=== PATIENT | female | born 1970 | race Caucasian/White ===

== ENCOUNTER 2022-05-11 10:16 | Outpatient (CLI) | payer OTHER, SELFPAY ==
[2022-05-11 21:41] LABS: Albumin* 4.6 g/dL (3.3-5.0)
[2022-05-11 21:42] LABS: Chloride* 104 mmol/L (96-114); Potassium* 4.4 mmol/L (3.6-5.1); Sodium* 138 mmol/L (135-149)
[2022-05-11 21:44] LABS: Alkaline Phosphatase* 85 U/L (40-150); Aspartate Amino Transferase* 24 U/L (12-35); Bilirubin Total* 0.6 mg/dL (0.1-1.5); Blood Urea Nitrogen* 11 mg/dL (7-30); Carbon Dioxide* 28 mmol/L (20-32); Cholesterol* 248 mg/dL (90-199); Creatinine* 0.7 mg/dL (0.5-1.5); Estimated Glomerular Filt Rate 105 ml/min; Total Protein* 7.5 g/dL (6.0-8.3)
[2022-05-11 21:45] LABS: Alanine Aminotransferase* 17 U/L (4-35); Glucose* 92 mg/dL (60-115); HDL Cholesterol* 77 mg/dL (>=50); LDL Cholesterol Calculated 149 mg/dL (<100); Triglycerides* 109 mg/dL (40-149)
[2022-05-11 22:18] LABS: TSH With Reflex to FT4* 0.983 uIU/mL (0.270-4.200)
[2022-05-11 22:35] LABS: Hepatitis C Virus Antibody* Negative (Negative)
== END 2022-05-11 10:17 | disposition home or self-care (01) ==
PROVIDERS: PCP Family Medicine; Visit Provider Family Medicine
DX: Z00.00 Encounter for general adult medical examination without abnormal findings (principal); E03.9 Hypothyroidism, unspecified; D69.6 Thrombocytopenia, unspecified; N76.0 Acute vaginitis; Z11.59 Encounter for screening for other viral diseases; Z13.6 Encounter for screening for cardiovascular disorders
CPT/HCPCS: 80053; 80061; 84443; 86803

== ENCOUNTER 2022-06-08 10:23 | Outpatient (CLI) | payer OTHER, SELFPAY | END 2022-06-08 10:24 | disposition home or self-care (01) | LOC: OP CLINIC 10:24 | PROVIDERS: PCP Family Medicine; Visit Provider Surgery | DX: Z12.11 Encounter for screening for malignant neoplasm of colon (principal); K63.5 Polyp of colon; Z80.0 Family history of malignant neoplasm of digestive organs; Z86.010 Personal history of colon polyps | CPT/HCPCS: 45385; 88305; 99153; J2250; J3010 ==

== ENCOUNTER 2022-07-06 12:45 | Outpatient (CLI) | payer OTHER, SELFPAY ==
--- NOTE | 2022-07-06 13:00 | CRLHL7_ITS ---
For Patients: As a result of the Century Cures Act, medical imaging exams and procedure reports are released immediately into your electronic medical record. You may view this report before your referring provider. If you have questions, please contact your health care provider. BILATERAL SCREENING MAMMOGRAM WITH COMPUTER-AIDED DETECTION AND TOMOSYNTHESIS TECHNIQUE: CC, MLO and Implant displaced views were obtained. These mammographic images have been obtained using full-field digital technique. These mammographic images were interpreted with the benefit of computer-aided detection. Breast Tomosynthesis was used in this interpretation. COMPARISON FILM: 04/21/17, 07/02/14, 10/05/12. FINDINGS: The breasts are extremely dense, which lowers the sensitivity of mammography IMPRESSION: There is no radiographic evidence for malignancy. ASSESSMENT: BI-RADS Category 2: Benign RECOMMENDATION: Routine screening mammogram in 1 year. A lay language report of this examination will be provided to the patient. Marques Gill M.D. Diagnostic Radiologist [email or web address] SEEMA/mary / be/Dictated by: Marques Gill MD @ 07/07/2022 1:15:00 PM (Electronically Signed)
== END 2022-07-06 12:46 | disposition home or self-care (01) ==
LOC: MAMMO 12:46
PROVIDERS: PCP Family Medicine; Visit Provider Family Medicine
DX: Z12.31 Encounter for screening mammogram for malignant neoplasm of breast (principal); R92.2 Inconclusive mammogram
CPT/HCPCS: 77063; 77067

== ENCOUNTER 2024-02-09 08:28 | Outpatient (CLI) | payer OTHER, SELFPAY ==
--- OUTSIDE RECORDS SUMMARY | 2024-02-09 08:32 | XMS_ITS | Clinical Summary ---
[facility] Address [address] [place] [id number] Care Team Providers Care Production Zone Leader Name Role Phone Heber Kraft MD Primary Care Provider [phone] Source Comments You are receiving this document as you are listed as the primary care provider,follow-up provider, or the patient has been referred to you for consultation.This is in compliance with the Medicare and[facility] EHR Incentive Program,which states Providers who transition their patient to another setting of careor provider of care or refers their patient to another provider of care shouldprovide summary care record for each transition of care or referral. [facility] Allerg[facility] Active Allergy Reactions Criticality Noted Date Comments Penicillin V Respiratory Distress High 03/30/2019 Medications No known medications Social History Tobacco Use Types Packs/Day Years Used Date Smoking Tobacco: Never Smokeless Tobacco: Current Alcohol Use Standard Drinks/Week Comments Yes 1 (1 standard drink = 0.6 oz pur e alcohol) occ Sex and Gender Information Value Date Recorded Sex Assigned at Not on file Gender Identity Not on file Sexual Orientation Not on file Last Filed Vital Signs Vital Sign Reading Time Taken Comments Blood Pressure 107/66 03/30/2019 3:55 PM WORK STUDY STUDENT Pulse 62 03/30/2019 3:55 PM WORK STUDY STUDENT Temperature - - Respiratory Rate 16 03/30/2019 3:55 PM WORK STUDY STUDENT Oxygen Saturation 100% 03/30/2019 3:55 PM WORK STUDY STUDENT Inhaled Oxygen Concentration - - Weight 59 kg (130 lb) 03/30/2019 2:52 PM WORK STUDY STUDENT Height 172.7 cm (5' 8) 03/30/2019 2:52 PM WORK STUDY STUDENT Body Mass Index 19.77 03/30/2019 2:52 PM WORK STUDY STUDENT Plan of Treatment Health Maintenance Due Date Last Done Comments Cervical Cancer Screening Due 1970 Hep C Screening (Preventive Services) 1970 Mammogram 1970 HIV Screening (Preventive Services) 1986 Adult Preventive Visit 1988 DTaP/Tdap/Td (1 - Tdap) 1989 HepB (1) 1989 Cholesterol 07/19/2015 Zoster/Shingles (1 of 2) 2020 COVID-19 Vaccine (2 - season) 2023 07/30/2020 Influenza (#1) 2023 02/21/2020, 01/25, 02/09/2018, Additional history exists Colonoscopy 03/30/2024 03/30/2019 HepA Aged Out No longer eligi ble based on patient's age to complete this topic Hib Aged Out No longer eligi ble based on patient's age to complete this topic IPV (Polio) Aged Out No longer eligi ble based on patient's age to complete this topic Infant RSV Aged Out No longer eligi ble based on patient's age to complete this topic MCV4 Aged Out No longer eligi ble based on patient's age to complete this topic Pneumococcal Aged Out No longer eligi ble based on patient's age to complete this topic Procedures Procedure Name Priority Date/Time Associated Diagnosis Comments ENDOSCOPY, COLON, SCREENING/DIAGNOSTI C Routine 03/30/2019 2:57 PM WORK STUDY STUDENT Special screening for malignant neoplasms, colon from Last 3 Months or Most Recently Relevant to Health Maintenance Results * Endoscopy, colon, diagnostic (03/30/2019 2:57 PM WORK STUDY STUDENT) Anatomical Region Laterality Modality Other 03/30/2019 2:57 PM WORK STUDY STUDENT Narrative 03/30/2019 2:57 PM WORK STUDY STUDENT Patient Name: Joanna Brothers Procedure Date: 03/30/2019 2:57 PM Date of : 1970 Admit Type: Outpatient Age: 48 Note Status: Finalized Attending MD: Tory Bello MD Procedure: ? Colonoscopy Indications: ? Screening in patient at increased ? risk: Colorectal cancer in mother 60 ? or older Providers: ? Tory Bello MD, Mira Carroll, JOSE MANUEL Referring MD: ? Medicines: ? Midazolam 3 mg IV, Fentanyl 100 ? micrograms IV Complications: ? No immediate complications. Estimated ? blood loss: Minimal. Procedure: ? After I obtained informed consent, ? the scope was passed under direct ? vision. Throughout the procedure, the ? patient's blood pressure, pulse, and ? oxygen saturations were monitored ? continuously. The Colonoscope was ? introduced through the anus and ? advanced to the terminal ileum, with ? identification of the appendiceal ? orifice and IC valve. The colonoscopy ? was performed without difficulty. The ? patient tolerated the procedure well. ? The quality of the bowel preparation ? was excellent. Findings: ? The perianal and digital rectal examinations were ? normal. ? A 5 mm polyp was found in the distal transverse ? colon. The polyp was flat. The polyp was removed with ? a cold biopsy forceps. Resection and retrieval were ? complete. Verification of patient identification for ? the specimen was done by the physician and nurse ? using the patient's name and date. Estimated ? blood loss was minimal. ? The exam was otherwise normal throughout the examined ? colon. ? The terminal ileum appeared normal. ? The retroflexed view of the distal rectum and anal ? verge was normal and showed no anal or rectal ? abnormalities. Moderate Sedation: ? Moderate (conscious) sedation was administered by the ? endoscopy nurse and supervised by the endoscopist. ? The following parameters were monitored: oxygen ? saturation, heart rate, blood pressure, and response ? to care. Total physician intraservice time was 23 ? minutes. Impression: ?- One 5 mm polyp in the distal ? transverse colon, removed with a cold ? biopsy forceps. Resected and ? retrieved. ? - The examined portion of the ileum ? was normal. ? - The distal rectum and anal verge ? are normal on retroflexion view. Recommendation: ?- Await pathology results. ? - Return to referring physician PRN. Procedure Code(s): ?? --- Professional --- ? 91299, Colonoscopy, flexible; with ? biopsy, single or multiple ? 13101, Moderate sedation; each ? additional 15 minutes intraservice ? time ? G0500, Moderate sedation services ? provided by the same physician or ? other qualified health care ? professional performing a ? gastrointestinal endoscopic service ? that sedation supports, requiring the ? presence of an independent trained ? observer to assist in the monitoring ? of the patient's level of ? consciousness and physiological ? status; initial 15 minutes of ? intra-service time; patient age 5 ? years or older (additional time may ? be reported with 98641, as ? appropriate) Diagnosis Code(s): ?? --- Professional --- ? Z80.0, Family history of malignant ? neoplasm of digestive organs ? D12.3, Benign neoplasm of transverse ? colon (hepatic flexure or splenic ? flexure) CPT copyright 2018 [employer]. All rights reserved. The codes documented in this report are preliminary and upon rotor blade installer review may be revised to meet current compliance requirements. Tory Bello MD 03/30/2019 3:32:55 PM This document has been electronically signed. Number of Addenda: 0 Note Initiated On: 03/30/2019 2:57 PM ? Endoscopy Report Procedure Note Toyr Bello MD - 03/30/2019 Patient Name: Joanna Brothers Procedure Date: 03/30/2019 2:57 PM Date of : 1970 Admit Type: Outpatient Age: 48 Note Status: Finalized Attending MD: Tory Bello MD Procedure: Colonoscopy Indications: Screening in patient at increased risk: Colorectal cancer in mother 60 or older Providers: Tory Bello MD, Mira Carroll, RN Referring MD: Medicines: Midazolam 3 mg IV, Fentanyl 100 micrograms IV Complications: No immediate complications. Estimated blood loss: Minimal. Procedure: After I obtained informed consent, the scope was passed under direct vision. Throughout the procedure, the patient's blood pressure, pulse, and oxygen saturations were monitored continuously. The Colonoscope was introduced through the anus and advanced to the terminal ileum, with identification of the appendiceal orifice and IC valve. The colonoscopy was performed without difficulty. The patient tolerated the procedure well. The quality of the bowel preparation was excellent. Findings: The perianal and digital rectal examinations were normal. A 5 mm polyp was found in the distal transverse colon. The polyp was flat. The polyp was removed with a cold biopsy forceps. Resection and retrieval were complete. Verification of patient identification for the specimen was done by the physician and nurse using the patient's name and date. Estimated blood loss was minimal. The exam was otherwise normal throughout the examined colon. The terminal ileum appeared normal. The retroflexed view of the distal rectum and anal verge was normal and showed no anal or rectal abnormalities. Moderate Sedation: Moderate (conscious) sedation was administered by the endoscopy nurse and supervised by the endoscopist. The following parameters were monitored: oxygen saturation, heart rate, blood pressure, and response to care. Total physician intraservice time was 23 minutes. Impression: - One 5 mm polyp in the distal transverse colon, removed with a cold biopsy forceps. Resected and retrieved. - The examined portion of the ileum was normal. - The distal rectum and anal verge are normal on retroflexion view. Recommendation: - Await pathology results. - Return to referring physician PRN. Procedure Code(s): --- Professional --- 33585, Colonoscopy, flexible; with biopsy, single or multiple 03758, Moderate sedation; each additional 15 minutes intraservice time G0500, Moderate sedation services provided by the same physician or other qualified health client care coordinator performing a gastrointestinal endoscopic service that sedation supports, requiring the presence of an independent trained observer to assist in the monitoring of the patient's level of consciousness and physiological status; initial 15 minutes of intra-service time; patient age 5 years or older (additional time may be reported with 00778, as appropriate) Diagnosis Code(s): --- Professional --- Z80.0, Family history of malignant neoplasm of digestive organs D12.3, Benign neoplasm of transverse colon (hepatic flexure or splenic flexure) CPT copyright 2018 [employer]. All rights reserved. The codes documented in this report are preliminary and upon rotor blade installer review may be revised to meet current compliance requirements. Tory Bello MD 03/30/2019 3:32:55 PM This document has been electronically signed. Number of Addenda: 0 Note Initiated On: 03/30/2019 2:57 PM Endoscopy Report Tory Blelo MD ET TAL FRY from Last 3 Months or Most Recently Relevant to Health Maintenance Care Teams Production Zone Leader Relationship Specialty Start Date End Date Heber Kraft MD [facility] [address] [place] [address] PCP - General Family Practice 03/30/19
== END 2024-02-09 08:29 | disposition home or self-care (01) ==
PROVIDERS: PCP Registered Nurse; Visit Provider Registered Nurse
DX: Z00.00 Encounter for general adult medical examination without abnormal findings (principal); D69.6 Thrombocytopenia, unspecified; Z13.6 Encounter for screening for cardiovascular disorders
CPT/HCPCS: 80048; 80061

== ENCOUNTER 2024-04-20 13:09 | Outpatient (CLI) | payer OTHER, SELFPAY ==
--- NOTE | 2024-04-20 13:20 | CRLHL7_ITS ---
For Patients: As a result of the Century Cures Act, medical imaging exams and procedure reports are released immediately into your electronic medical record. You may view this report before your referring provider. If you have questions, please contact your health care provider. BILATERAL SCREENING MAMMOGRAM WITH COMPUTER-AIDED DETECTION AND TOMOSYNTHESIS TECHNIQUE: CC, MLO and Implant displaced views were obtained. These mammographic images have been obtained using full-field digital technique. These mammographic images were interpreted with the benefit of computer-aided detection. Breast Tomosynthesis was used in this interpretation. COMPARISON FILM: 07/06/22, 04/11/17, 10/28/12. FINDINGS: The breasts are extremely dense, which lowers the sensitivity of mammography. IMPRESSION: There is no radiographic evidence for malignancy. ASSESSMENT: BI-RADS Category 2: Benign RECOMMENDATION: Routine screening mammogram in 1 year. A lay language report of this examination will be provided to the patient. Marques Gill M.D. Diagnostic Radiologist [email or web address] SP/Dictated by: Marques Gill MD @ 04/23/2024 8:34:00 AM (Electronically Signed)
== END 2024-04-20 13:10 | disposition home or self-care (01) ==
LOC: MAMMO 13:10
PROVIDERS: PCP Registered Nurse; Visit Provider Registered Nurse
DX: Z12.31 Encounter for screening mammogram for malignant neoplasm of breast (principal); R92.343 Mammographic extreme density, bilateral breasts
CPT/HCPCS: 77063; 77067